=== PATIENT | female | born 1970 | race Caucasian/White ===

== ENCOUNTER → 2023-08-22 | Outpatient (CLI) | payer BC, SELFPAY ==
--- NOTE | 2023-08-22 08:04 | MRI_ITS ---
INDICATION: Soft tissue mass in the posterior neck base. EXAMINATION: MRI - MR Face Neck Orbit WO/W Contrast TECHNIQUE: Multiplanar and multisequence MR images of the neck were performed without and with IV gadolinium. IV Contrast Dosage and Agent: 12 mL of Clariscan. COMPARISON: None. FINDINGS: NASOPHARYNX: Unremarkable. SUPRAHYOID NECK: Unremarkable oropharynx, oral cavity, parapharyngeal space, and retropharyngeal space. Midline bulging of the subcutaneous fat in between the vitamin E markers at C4 down to C7 vertebral body levels is most likely lipoma. In the sagittal view, this measures 4.3 x 2.2 cm. The lateral margins of lipoma are difficult to measure since they appeared to blend imperceptibly with the normal subcutaneous fat. INFRAHYOID NECK: Unremarkable larynx, hypopharynx, and supraglottis. THYROID: No focal lesions. SALIVARY GLANDS: Unremarkable. LYMPH NODES: No cervical or supraclavicular lymphadenopathy. VASCULAR STRUCTURES: Unremarkable. VISUALIZED PORTIONS OF THE ORBITS, PARANASAL SINUSES, MASTOID AIR CELLS AND SKULL BASE: Unremarkable. THORACIC INLET: Clear lung apices. CERVICAL SPINE: Unremarkable. Include Additional Portions As Necessary. MRI/Orbit Face Neck W/WO Contrast IMPRESSION: 1. Midline bulging of the posterior subcutaneous fat in between the vitamin E markers is most likely nonenhancing benign lipoma. In the sagittal view, this measures approximately 4.3 x 2.2 cm. The lateral margins of the lipoma is difficult to define in the axial views. 2. No MRI evidence of enhancing mass or lymphadenopathy in the suprahyoid neck and infrahyoid neck. Electronically Signed: Asa Desai MD at 10:50 EST ,
[2023-08-22 08:51] LABS: CREATININE FINGERSTICK < 0.9 mg/dL (0.55-1.02); EGFR FINGERSTICK > 60.0000 mL/min (>60)
== END | disposition home or self-care (01) ==
LOC: MRI 07:56
PROVIDERS: Referring Provider Plastic Surgery; Visit Provider Plastic Surgery
DX: D48.19 Other specified neoplasm of uncertain behavior of connective and other soft tissue (principal); M54.2 Cervicalgia
CPT/HCPCS: 70543; A9575